=== PATIENT | male | born 1975 | race Caucasian/White ===

== ENCOUNTER 2024-06-02 10:23 | Outpatient (REF) | payer OTHER, SELFPAY ==
[2024-06-02 12:06] LABS: Anion Gap 15 (12-20); Blood Urea Nitrogen 15 mg/dL (9-16); Calcium 10.1 mg/dL (8.4-10.2); Carbon Dioxide 24 mmol/L (22-29); Chloride 105 mmol/L (96-108); Estimated Glomerular Filt Rate > 60; Glucose Random 114 mg/dL (60-115); Potassium 4.2 mmol/L (3.3-5.1); Sodium 140 mmol/L (135-145)
[2024-06-02 12:11] LABS: Rheumatoid Factor < 13.0 IU/mL (<15.0)
[2024-06-02 12:14] LABS: Erythrocyte Sedimentation Rate 7 MM/HR (0-15)
[2024-06-02 12:26] LABS: HIV AB/AG Nonreactive (Nonreactive); HIV Num 1 0.05 S/CO (0.00-0.99)
[2024-06-02 12:27] LABS: Syphilis Screen Nonreactive (Nonreactive)
[2024-06-03 21:04] LABS: Lyme Abs Screen <0.90 index
[2024-06-06 21:17] LABS: Cardiolipin IgG Ab <2.0 GPL-U/mL; Cardiolipin IgM Ab 2.7 MPL-U/mL
== END 2024-06-02 10:24 | disposition home or self-care (01) ==
LOC: HO.LAB 10:23
PROVIDERS: PCP Internal Medicine; Visit Provider Psychiatry & Neurology Neurology
DX: G93.49 Other encephalopathy (principal)
CPT/HCPCS: 36415; 80048; 85652; 86147; 86431; 86617; 86618; 86780; 87389

== ENCOUNTER → 2024-07-01 09:04 | Day surgery (SDC) | payer OTHER, SELFPAY | LOC: HO.XRAY 09:06 → HO.SSS 09:15 | PROVIDERS: PCP Internal Medicine; Visit Provider Psychiatry & Neurology Neurology | DX: R90.82 White matter disease, unspecified (principal) ==

== ENCOUNTER 2024-07-01 09:34 | Day surgery (SDC) | payer OTHER, SELFPAY ==
--- NOTE | ~2024-07-01 | FL_ITS ---
FLUOROSCOPIC GUIDED LUMBAR PUNCTURE INDICATION: White matter changes TECHNIQUE: Risks and benefits and possible complications were discussed with the patient and the consent form was signed. Patient was placed prone on the fluoroscopy table. The back was prepped and draped in routine sterile fashion. Betadine was used as a skin antiseptic. Utilizing fluoroscopic guidance, the L3-4 interlaminar space was accessed with a 22 gague Radha spinal needle and clear CSF fluid obtained. Opening pressure was 10 cm H20. 8 cc of fluid was sent for analysis. The needle was removed without immediate complications. Total fluoroscopy time: 0.3 min FL/FL guided lumbar puncture LP IMPRESSION: Successful fluoroscopic guided lumbar puncture. This procedure was performed by Lucius Ruiz PA-C and supervised by Dr. Marsh.
[2024-07-01 09:44] VITALS: BMI 28.1
[2024-07-01 11:40] VITALS: BP 136/85; PULSE 70; RESP 16; TEMP 36.3; O2SAT 97
[2024-07-01 11:55] VITALS: BP 139/89; PULSE 72; RESP 17; O2SAT 97
[2024-07-01 12:10] VITALS: BP 144/86; PULSE 70; RESP 17; O2SAT 97
[2024-07-01 12:28] VITALS: BP 144/86; PULSE 73; RESP 16; TEMP 36.1; O2SAT 97
[2024-07-01 12:46] LABS: Glucose CSF 63 mg/dL; Total Protein CSF 67.2 mg/dL (15-45)
[2024-07-01 12:49] LABS: CSF Appearance Clear, Colorless; CSF Tube # 1
[2024-07-01 13:58] LABS: Appearance CSF CLEAR; CSF Tube # 4; Color CSF COLORLESS; Red Blood Cell CSF 0 MM*3; White Blood Cell CSF 0 MM*3
[2024-07-04 13:11] LABS: Oligoclonal Serum Yes
[2024-07-05 06:18] LABS: Albumin 4.8 g/dL (3.6-5.1); Albumin, CSF 44.4 mg/dL (8.0-42.0); IgG 1110 mg/dL (600-1640); IgG Synthesis Rate -3.7 mg/24 h (-9.9-3.3); IgG, CSF 4.6 mg/dL (0.8-7.7)
[2024-07-06 19:43] LABS: Oligoclonal Banding Absent (Absent)
== END 2024-07-01 12:32 | disposition home or self-care (01) ==
PROVIDERS: Physician Assistant Surgical; PCP Internal Medicine; Visit Provider Psychiatry & Neurology Neurology
PROC: 009U3ZZ Drainage of Spinal Canal, Percutaneous Approach (ICD-10-PCS; CPT 62270; principal; 2024-07-01 11:00)
DX: R90.82 White matter disease, unspecified (principal); H81.20 Vestibular neuronitis, unspecified ear
CPT/HCPCS: 62328; 82042; 82945; 83916; 84157; 87015; 87070; 87205; 89051

== ENCOUNTER → 2024-07-01 11:06 | Outpatient (BNV) | payer OTHER, SELFPAY | PROVIDERS: PCP Internal Medicine; Visit Provider Physician Assistant Surgical | DX: R90.82 White matter disease, unspecified (principal) | CPT/HCPCS: 62328 ==